=== PATIENT | female | born 1960 | race Caucasian/White ===

== ENCOUNTER 2018-10-20 19:04 | Emergency (ER) | payer MEDICAID ==
[2018-10-20 19:34] LABS: BASOPHILS % (AUTO) 0.2 % (0.0-5.0); EOSINOPHILS % (AUTO) 1.4 % (0.0-8.0); HEMATOCRIT 42.5 % (36-48); LYMPHOCYTES % (AUTO) 30.9 % (21.0-51.0); MEAN CORPUSCULAR HEMOGLOBIN 32.5 pg (27.0-33.0); MEAN CORPUSCULAR HGB CONC 34.4 g/dL (32.0-36.0); MEAN CORPUSCULAR VOLUME 94.6 fL (79-99); MONOCYTES % (AUTO) 6.9 % (3.0-13.0); NEUTROPHILS % (AUTO) 60.6 % (40.0-77.0); NUCLEATED RED BLOOD CELLS 0.1 % (0.0-0.19); PLATELET COUNT (AUTO) 347 K/uL (130-400); RED BLOOD CELL COUNT(AUTO) 4.49 MIL/uL (4.00-5.50); RED CELL DISTRIBUTION WIDTH 12.4 % (11.0-15.5); WHITE BLOOD COUNT (AUTO) 8.9 K/uL (4.8-10.8)
[2018-10-20 19:45] LABS: CREATININE 1.4 mg/dL (0.5-1.5); POTASSIUM 3.9 mmol/L (3.5-5.1)
[2018-10-20 19:47] LABS: INR 0.84 (0.85-1.15); PARTIAL THROMBOPLASTIN TIME 23.5 SEC (26.3-35.5); PROTHROMBIN TIME 8.9 SEC (9.6-11.6)
[2018-10-20 19:49] LABS: ALBUMIN 4.1 g/dL (3.5-5.0); BILIRUBIN,TOTAL 0.2 mg/dL (0.2-1.0); TOTAL PROTEIN, SERUM 8.2 g/dL (6.0-8.3)
[2018-10-20 21:40] LABS: APPEARANCE,URINE Clear (CLEAR); BILIRUBIN,URINE Negative (NEGATIVE); COLOR,URINE Yellow (YELLOW); GLUCOSE, URINE (UA) Negative (NEGATIVE); KETONES,URINE Negative (NEGATIVE); LEUKOCYTE ESTERASE ,URINE Negative (NEGATIVE); NITRATE,URINE Negative (NEGATIVE); OCCULT BLOOD,URINE Negative (NEGATIVE); PH,URINE 5.5 (5.0-8.0); PROTEIN,URINE Negative (NEGATIVE)
[2018-10-20] MEDS ORDERED: TRAMADOL HCL 50 MG TABLET ONE (22:36)
== END 2018-10-20 23:32 | disposition home or self-care (01) ==
LOC: EDH 19:04
DX: M54.5 Low back pain (principal); G35 Multiple sclerosis; E11.9 Type 2 diabetes mellitus without complications; M79.7 Fibromyalgia; R19.7 Diarrhea, unspecified; Z87.891 Personal history of nicotine dependence; Z91.041 Radiographic dye allergy status
CPT/HCPCS: 36415; 72131; 74176; 80053; 81003; 82150; 82550; 83690; 84484; 85025; 85610; 85730; 93005

== ENCOUNTER → 2020-10-26 | Outpatient (CLI) | payer OTHER, MEDICARE | END | disposition home or self-care (01) | LOC: RAH 11:43 | PROVIDERS: ATTEND Family Medicine | DX: R33.9 Retention of urine, unspecified (principal) | CPT/HCPCS: 76857 ==

== ENCOUNTER → 2021-11-07 | Outpatient (CLI) | payer OTHER, MEDICARE ==
[2021-11-07 11:06] LABS: APPEARANCE,URINE CLEAR (CLEAR); BASOPHILS % (AUTO) 1.1 % (0.0-5.0); BILIRUBIN,URINE NEGATIVE (NEGATIVE); COLOR,URINE YELLOW (YELLOW); EOSINOPHILS % (AUTO) 3.1 % (0.0-8.0); GLUCOSE, URINE (UA) 500 mg/dL (NEGATIVE); HEMATOCRIT 46.8 % (36-48); KETONES,URINE NEGATIVE (NEGATIVE); LEUKOCYTE ESTERASE ,URINE NEGATIVE (NEGATIVE); LYMPHOCYTES % (AUTO) 29.3 % (21.0-51.0); MEAN CORPUSCULAR HEMOGLOBIN 31.3 pg (27.0-33.0); MEAN CORPUSCULAR HGB CONC 33.3 g/dL (32.0-36.0); MEAN CORPUSCULAR VOLUME 93.8 fL (79-99); MONOCYTES % (AUTO) 7.6 % (3.0-13.0); NEUTROPHILS % (AUTO) 57.8 % (40.0-77.0); NITRATE,URINE NEGATIVE (NEGATIVE); OCCULT BLOOD,URINE SMALL (NEGATIVE); PH,URINE 5.5 (5.0-8.0); PLATELET COUNT (AUTO) 311 K/uL (130-400); PROTEIN,URINE 30 mg/dL (NEGATIVE); RED BLOOD CELL COUNT(AUTO) 4.99 MIL/uL (4.00-5.50); RED CELL DISTRIBUTION WIDTH 12.6 % (11.0-15.5); UROBILINOGEN,URINE 0.2 mg/dL (0.2-1.0); WHITE BLOOD COUNT (AUTO) 7.3 K/uL (4.8-10.8)
[2021-11-07 11:18] LABS: ALBUMIN 4.3 g/dL (3.5-5.0); CREATININE 1.4 mg/dL (0.5-1.5); PHOSPHORUS 3.8 mg/dL (2.5-4.9); POTASSIUM 3.5 mmol/L (3.5-5.1); TOTAL PROTEIN, SERUM 8.2 g/dL (6.0-8.3)
[2021-11-07 11:53] LABS: BACTERIA,URINE Few /HPF (None Seen); MUCUS,URINE Rare LPF (None Seen); SQUAMOUS EPITHELIAL CELL,UR Rare /HPF (0-2); WBC,URINE 0-1 /HPF (0-1)
[2021-11-07 19:42] LABS: HEPATITIS C ANTIBODY Non-Reactive (Nonreactive)
== END | disposition home or self-care (01) ==
LOC: LAB 09:18
PROVIDERS: ATTEND Internal Medicine Nephrology
DX: N28.9 Disorder of kidney and ureter, unspecified (principal); R53.1 Weakness
CPT/HCPCS: 36415; 80053; 81001; 83970; 84100; 84270; 85025; 86038; 86160; 86215; 86235; 86255; 86334; 87520

== ENCOUNTER 2024-04-21 23:21 | Emergency (ER) | payer MEDICARE ==
[~2024-04-21] VITALS: Ht 165.1 cm; Wt 65.8 kg
[2024-04-22] MEDS: ORPHENADRINE 60MG/2ML IM ONE
[2024-04-22] MEDS: TRIAMCINOLONE ACETONIDE 40 MG/ML 1ML VIAL IM ONE
--- NOTE | 2024-04-22 00:32 | ERN ---
General Chief Complaint: Back Pain-No Injury Stated Complaint: C/O BACK PAIN; HX OF HERNIATED DISCS Time Seen by MD: 23:44 Source: patient History of Present Illness Initial Comments Patient is a 64-year-old female coming in to be evaluated for upper back pain. Patient states he was multiple herniated discs and is in between doctors so she has no pain management. She states that she has a tuberculosis specialist and she was pending evaluation again by him. The neuropathy no other current concerns except for chronic upper back. 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 HEAD/FACE: No signs of trauma. EENT: No eye pain, no blurred vision, no tearing, no double vision, no ear pain , no ear discharge, no nose pain, no nasal congestion, no throat pain, no throat swelling, no mouth pain. RESPIRATORY: No cough, no orthopnea, no SOB, no stridor, no wheezing. CARDIOVASCULAR: No chest pain, no edema, no palpitations, no syncope. GASTROINTESTINAL/ABDOMINAL: No abdominal pain, no constipation, no diarrhea, no nausea, no vomiting. GENITOURINARY: No abnormal discharge, no dysuria, no frequent urination, no hematuria. No complaints of pain in the genitals. MUSCULOSKELETAL: No back pain, no gout, no joint pain, no joint swelling, muscle pain, no muscle stiffness, no neck pain. INTEGUMENTARY: No change in color, no change in hair/nails, no dryness, no lesion, no lumps, no rash. NEUROLOGICAL/PSYCH: No anxiety, not depressed, no emotional problem, no headache, no numbness, no pre-existing deficit, no history of seizures, no tremors, no weakness. HEMATOLOGIC/LYMPHATIC: Not anemic, no history of blood clots, no apparent bleeding, no bruising, glands not swollen. All Systems Negative, Except as Noted. Physical Exam Physical Exam Dictation VITAL SIGNS: Reviewed. GENERAL APPEARANCE: Alert, oriented x3, no acute distress, obese. HEAD AND FACE: Non-traumatic. EYES: PERRL, pink conjunctivas, eyelid no trauma, anterior chamber clear. EARS: Pinnas intact and no signs of trauma or erythema. Ear canals clear and no discharge. TMs no erythema. NOSE: No discharge, no bleeding. OROPHARYNX: Mouth normal, teeth no caries, tongue pink. Pharynx clear, no er ythema. Tonsils no exudates, no abscesses noted. Mucous membrane moist. NECK: Supple, non-tender, no thyromegaly, no masses, no JVD, no bruits. BREAST: Deferred. CHEST: No tenderness, no crepitus, no paradoxical movement, no retractions. LUNGS: Clear, well-ventilated, symmetric, no rales, no wheezing, no rhonchi, no stridor, good breath sounds bilaterally. HEART: Regular rate, regular rhythm, no murmur, no gallops. VASCULAR: No peripheral edema. ABDOMEN: Soft, positive bowel sounds, nondistended, no guarding, nontender, no rebound, no masses no hepatomegaly, no splenomegaly, no Wen's sign, no hernias. RECTAL: Deferred. GENITAL: Deferred. NEUROLOGICAL: Normal speech, gross motor function intact, gross sensory function intact. MUSCULOSKELETAL: Neck nontender, full range of motion, back nontender, full range of motion. EXTREMITIES: Nontender, full range of motion. SKIN: Color pink, dry, no turgor, no rash, no lacerations, no abrasions, no contusions. LYMPHATICS: Deferred. Results Laboratory and Microbiology Labs Reviewed?: Yes EKG/XRAY/US/CT/MRI CT Scan Comment [address] [address] IMAGING REPORT Signed PATIENT: LORRIE MASSEY MR#: [id number] : 1960 SEX: F AGE: 64 LOCATION: [facility] ORDER 54 STATUS: REG ER REPORT#: [id number] SERVICE [id number] REASON: back pain ORDERING PHYSICIAN: DEBRA MURPHY MD PROCEDURE: T SPINE WO - CT THORACIC SPINE W/O CONTRAST CT THORACIC SPINE W/O CONTRAST HISTORY: Back pain COMPARISON: None TECHNIQUE: Multiple sequential axial images of the thoracic spine were obtained including post processing sagittal and coronal reconstruction images. Patient was not given contrast through intravenous route. FINDINGS: Dextroscoliosis of thoracolumbar spine are noted. There is bone osteopenia. There are degenerative changes with spondylosis. There is no loss of vertebral height. Evaluation for disc and cord pathology is limited with CT study. No evidence of fracture or dislocation is seen. IMPRESSION: 1. No fracture is seen. Scoliosis. Bony osteopenia. DJD with spondylosis. CT was performed with one or more following dose reduction techniques: automated exposure control, adjustment of the mA and kv according to patient's size, or use of a iterative reconstruction technique. DICTATED BY: MANNY AGUILLON MD DATE: 04/22/2434 ELECTRONICALLY SIGNED BY: MANNY AGUILLON MD DATE: 04/22/2438 [facility] MDM: Differential diagnosis: Chronic back pain, osteoarthritis of the back, herniated disc, Patient is a 64-year-old female coming in to be evaluated for back pain. Patient states that she has chronic back pain and was so she was herniated. She was also told that she was she had a follow up with her specialist this is not been a did see. She he between states he has been leaking down so she does not have any medication for her back pain. Patient received medication and CT did not disclose acute findings. Patient will be discharged with chronic back pain. ED Course Orders Procedure Category Date Status Time Ct Thoracic Spine W/O CT 04/21/24 Resulted Contrast 23:54 Orphenadrine Citrate PHA 04/22/24 Complete (Norflex) 00:00 Triamcinolone Acet PHA 04/22/24 Complete 40mg/Ml 1ml (Kenalog 00:00 Current Medications Medications (Trade) Dose Ordered Sig/Corby Route PRN Reason Start Time Stop Time Status Last Admin Dose Admin Orphenadrine Citrate (Norflex) 60 mg ONCE ONCE IM 04/22/24 00:00 04/22/24 00:01 DC 04/22/24 00:00 Triamcinolone Acetonide (Kenalog 40) 40 mg ONCE ONCE IM 04/22/24 00:00 04/22/24 00:01 DC 04/22/24 00:00 Vital Signs Date Time Temp Pulse Resp B/P (MAP) Pulse Ox O2 Delivery O2 Flow Rate FiO2 04/22/24 00:07 98.4 95 18 101/69 99 Room Air* 0 21 04/21/24 23:23 98.8 114 20 108/66 96 Room Air DX & DISP Disposition: Discharge Departure Impression: Primary Impression: Chronic back pain greater than 3 months duration Condition: Stable Scripts Lidocaine (Lidocaine Pain Relief) 4 % Adh..patch 1 PATCH TP DAILY for 7 Days, #7 PATCH 0 Refills Prov: DEBRA MURPHY MD 04/22/24 Additional Instructions: FOLLOW-UP WITH PRIMARY CARE PROVIDER IN 1 TO 2 DAYS. TAKE MEDICATIONS DIRECTED HERE IN THE EMERGENCY ROOM. OKAY TO CONTINUE HOME MEDICATIONS UNLESS OTHERWISE DISCUSSED DURING YOUR VISIT IN THE EMERGENCY ROOM TODAY. RETURN TO YOUR NEAREST EMERGENCY ROOM IF SYMPTOMS WORSEN OR IF THERE IS NO IMPROVEMENT. CALL 911 IF YOU NEED IMMEDIATE ASSISTANCE. TAKE TYLENOL [id number] NEEDED AND IF NO CONTRAINDICATIONS ARE PRESENT. INCREASE ORAL HYDRATION. A WOUND CULTURE OR URINE CULTURE WAS ORDERED HERE IN THE EMERGENCY ROOM DEPARTMENT PLEASE FOLLOW-UP WITH PRIMARY CARE PROVIDER AND ADVISE THEM TO GET REPEAT PORTS FROM OUR FACILITY. IF YOU HAD ANY ADAM WRAP/SPLINTS THAT WERE APPLIED HERE, PLEASE DO NOT REMOVE THEM UNTIL YOU SEE YOUR PRIMARY CARE OR SPECIALTY. Referrals: Referrals: ALLA PERSAUD MD (PCP) Time of Disposition: 01:13 DEBRA MURPHY MD Apr 22, 2024 00:32
--- NOTE | 2024-04-22 00:39 | HMCIMG ---
CT THORACIC SPINE W/O CONTRAST HISTORY: Back pain COMPARISON: None TECHNIQUE: Multiple sequential axial images of the thoracic spine were obtained including post processing sagittal and coronal reconstruction images. Patient was not given contrast through intravenous route. FINDINGS: Dextroscoliosis of thoracolumbar spine are noted. There is bone osteopenia. There are degenerative changes with spondylosis. There is no loss of vertebral height. Evaluation for disc and cord pathology is limited with CT study. No evidence of fracture or dislocation is seen. IMPRESSION: 1. No fracture is seen. Scoliosis. Bony osteopenia. DJD with spondylosis. CT was performed with one or more following dose reduction techniques: automated exposure control, adjustment of the mA and kv according to patient's size, or use of a iterative reconstruction technique.
[2024-04-22] MEDS ORDERED: LIDO1ADH71 TP (01:14)
[2024-04-22] MEDS: LIDOCAINE 4% ADH..PATCH TP ONE (01:18)
[2024-04-22 01:31] VITALS: BP 122/65; PULSE 90; RESP 18; TEMP 98.4; O2SAT 96
== END 2024-04-22 01:25 | disposition home or self-care (01) ==
LOC: EDH 23:21
DX: G89.29 Other chronic pain (principal); M54.50 Low back pain, unspecified; E11.40 Type 2 diabetes mellitus with diabetic neuropathy, unspecified; M79.7 Fibromyalgia; Z88.8 Allergy status to other drugs, medicaments and biological substances; Z90.710 Acquired absence of both cervix and uterus; Z91.041 Radiographic dye allergy status
CPT/HCPCS: 99285; 72128; 96372 ×2; J3301; J2360